=== PATIENT | female | born 1940 | race African-American/Black ===

== ENCOUNTER 2019-11-11 16:16 | Inpatient (IN) | payer MEDICARE, BC ==
[~2019-11-11] VITALS: Ht 170.2 cm; Wt 89.5 kg
[2019-11-11] MEDS: BLOOD SUGAR DIAGNOSTIC STRIP TEST SCH ×2 (02:26→18:18)
[2019-11-11] MEDS: INSULIN LISPRO 100 UNITS/ML SUBCUT SCH ×2 (02:26→18:20)
[~2019-11-11 16:16] MED LIST: FURO-152 PO; METF-414 PO
[2019-11-11 16:44] LABS: EOSINOPHILS % 2.3 % (0.0-5.0); HEMATOCRIT. 36.6 % (36.0-48.0); HEMOGLOBIN. 12.4 g/dL (12.0-16.0); LYMPHOCYTES % 33.8 % (20.0-50.0); MEAN CORPUSCULAR HEMOGLOBIN 29.2 pg (28.0-32.0); MEAN PLATELET VOLUME 8.8 fl (7.4-10.4); MONOCYTES % 10.1 % (2.0-8.0); NEUTROPHILS % 52.8 % (40.0-76.0); PLATELET 183 x1000/uL (130-400); RED BLOOD CELL COUNT 4.26 mill/uL (4.2-5.4); RED CELL DISTRIBUTION WIDTH 14.4 % (11.6-14.6)
[2019-11-11] MEDS: HYDRALAZINE 20MG/ML VIAL IV ONE ×2 (16:45→17:24)
[2019-11-11 16:47] LABS: CHLORIDE 109 mEq/L (98-107)
[2019-11-11 16:50] LABS: PARTIAL THROMBOPLASTIN TIME 23.6 sec (23.4-31.0); PROTHROMBIN TIME 11.3 sec (9.6-11.0)
[2019-11-11 16:51] LABS: ETHANOL BLOOD < 10 mg/dL
[2019-11-11 16:54] LABS: LDL CHOLESTEROL 86 mg/dL (5-100)
[2019-11-11] MEDS ORDERED: IOHEXOL-350 100 ML BOTTLE ONE (17:26)
[2019-11-11] MEDS ORDERED: DIPHENHYDRAMINE 50MG/ML VIAL IV PRN (17:45)
[2019-11-11] MEDS ORDERED: DEXTROSE 50% WATER 50ML SYRINGE IV PRN (17:45)
[2019-11-11] MEDS ORDERED: ONDANSETRON HCL 4MG/2ML INJ IV PRN (17:45)
[2019-11-11] MEDS ORDERED: ACETAMINOPHEN 325MG TABLET PO PRN ×2 (17:45)
[2019-11-11] MEDS ORDERED: MAGNESIUM/ALUMINUM HYDROXIDE/SIMETHICONE 30ML UDC PO PRN (17:45)
[2019-11-11] MEDS ORDERED: ASPIRIN 325MG EC TABLET PO ONE (18:00)
[2019-11-11 20:02] LABS: CLARITY URINE CLEAR (CLEAR); COLOR URINE YELLOW (YELLOW); KETONES URINE NEGATIVE (NEGATIVE); LEUKOCYTE ESTERASE URINE NEGATIVE (NEGATIVE); NITRITE URINE NEGATIVE (NEGATIVE); OCCULT BLOOD URINE NEGATIVE (NEGATIVE); PH URINE 6.5 (4.5-8.0); PROTEIN URINE 2+ (NEGATIVE); SPECIFIC GRAVITY URINE 1.036 (1.005-1.030); UROBILINOGEN URINE 0.2 E.U./dL (0.2-1.0)
[2019-11-11 20:21] LABS: PHOSPHORUS 3.2 mg/dL (2.5-4.9)
[2019-11-11 20:24] LABS: *AMPHETAMINES SCREEN URINE NEGATIVE (NEGATIVE); *BARBITURATES SCREEN URINE NEGATIVE (NEGATIVE); *BENZODIAZEPINES SCREEN URINE NEGATIVE (NEGATIVE); *COCAINE SCREEN URINE NEGATIVE (NEGATIVE)
[2019-11-11 20:25] LABS: CANNABINOID URINE SCREEN NEGATIVE (NEGATIVE); METHADONE URINE SCREEN NEGATIVE (NEGATIVE); OPIATES URINE SCREEN NEGATIVE (NEGATIVE); PHENCYCLIDINE URINE SCREEN NEGATIVE (NEGATIVE)
[2019-11-11] MEDS ORDERED: ZOLPIDEM TARTRATE 5MG TABLET PO PRN (21:00)
[2019-11-11] MEDS ORDERED: HYDRALAZINE 20MG/ML VIAL IV ONE (21:45)
[2019-11-11] MEDS: SODIUM CHLORIDE 0.9% INJ 3ML FLUSH IVF SCH (22:26)
[2019-11-12] VITALS (16 sets, daily range): BP systolic 131–214; BP diastolic 55–108
[2019-11-12] MEDS: ENOXAPARIN 40MG/0.4ML SYR SUBCUT SCH ×2 (02:25→20:29)
[2019-11-12] MEDS: SODIUM CHLORIDE 0.9% INJ 3ML FLUSH IVF SCH ×3 (06:21→20:33)
[2019-11-12] MEDS: BLOOD SUGAR DIAGNOSTIC STRIP TEST SCH ×4 (06:24→20:32)
[2019-11-12] MEDS: INSULIN LISPRO 100 UNITS/ML SUBCUT SCH ×4 (07:20→20:33)
[2019-11-12] MEDS: HYDRALAZINE 20MG/ML VIAL IV PRN ×3 (07:47→18:08)
[2019-11-12] MEDS: ASPIRIN 81MG EC TABLET PO SCH (10:37)
[2019-11-12] MEDS: AMLODIPINE 10MG TABLET PO SCH (10:43)
[2019-11-12] MEDS ORDERED: CARV25TA47 MT (15:15)
[2019-11-12] MEDS ORDERED: AMLO10TA80 MT (15:16)
[2019-11-12] MEDS ORDERED: HYDR25TA MT (15:17)
[2019-11-12] MEDS ORDERED: ISOS1TAB MT (15:18)
[2019-11-12] MEDS ORDERED: ASPI-1497 MT (15:18)
[2019-11-12] MEDS: ATORVASTATIN CALCIUM 20MG TABLET PO SCH (20:29)
[2019-11-13] VITALS (12 sets, daily range): BP systolic 131–195; BP diastolic 42–95
[2019-11-13] MEDS: HYDRALAZINE 20MG/ML VIAL IV PRN ×2 (00:22→22:14)
[2019-11-13] MEDS: SODIUM CHLORIDE 0.9% INJ 3ML FLUSH IVF SCH ×3 (05:34→20:59)
[2019-11-13] MEDS: BLOOD SUGAR DIAGNOSTIC STRIP TEST SCH ×4 (05:34→20:43)
[2019-11-13] MEDS: INSULIN LISPRO 100 UNITS/ML SUBCUT SCH ×4 (07:20→20:43)
[2019-11-13] MEDS: ASPIRIN 81MG EC TABLET PO SCH (08:55)
[2019-11-13] MEDS: AMLODIPINE 10MG TABLET PO SCH (08:57)
[2019-11-13] MEDS: ATORVASTATIN CALCIUM 20MG TABLET PO SCH (20:58)
[2019-11-13] MEDS: ENOXAPARIN 40MG/0.4ML SYR SUBCUT SCH (20:59)
[2019-11-14] VITALS (11 sets, daily range): BP systolic 118–190; BP diastolic 55–135
[2019-11-14] MEDS: SODIUM CHLORIDE 0.9% INJ 3ML FLUSH IVF SCH ×3 (06:15→21:41)
[2019-11-14] MEDS: BLOOD SUGAR DIAGNOSTIC STRIP TEST SCH ×4 (06:21→21:40)
[2019-11-14] MEDS: INSULIN LISPRO 100 UNITS/ML SUBCUT SCH ×4 (06:21→21:00)
[2019-11-14 08:02] LABS: HEMATOCRIT. 34.7 % (36.0-48.0); HEMOGLOBIN. 11.9 g/dL (12.0-16.0); MEAN CORPUSCULAR HEMOGLOBIN 29.3 pg (28.0-32.0); MEAN CORPUSCULAR VOLUME 85.6 fL (81.0-99.0); MEAN PLATELET VOLUME 8.2 fl (7.4-10.4); PLATELET 175 x1000/uL (130-400); RED BLOOD CELL COUNT 4.05 mill/uL (4.2-5.4); RED CELL DISTRIBUTION WIDTH 14.7 % (11.6-14.6)
[2019-11-14 08:18] LABS: CHLORIDE 108 mEq/L (98-107)
[2019-11-14] MEDS: AMLODIPINE 10MG TABLET PO SCH (08:36)
[2019-11-14] MEDS: HYDRALAZINE HCL 10MG TABLET PO SCH ×2 (10:36→21:37)
[2019-11-14 14:45] LABS: PLATELET ESTIMATE NORMAL
[2019-11-14] MEDS: ATORVASTATIN CALCIUM 20MG TABLET PO SCH (21:37)
[2019-11-15] VITALS (12 sets, daily range): BP systolic 124–219; BP diastolic 60–92
[2019-11-15] MEDS: HYDRALAZINE 20MG/ML VIAL IV PRN (03:40)
[2019-11-15] MEDS: BLOOD SUGAR DIAGNOSTIC STRIP TEST SCH ×4 (06:33→21:00)
[2019-11-15] MEDS: SODIUM CHLORIDE 0.9% INJ 3ML FLUSH IVF SCH ×3 (06:33→21:17)
[2019-11-15] MEDS: INSULIN LISPRO 100 UNITS/ML SUBCUT SCH ×4 (06:34→22:57)
[2019-11-15 07:01] LABS: CHLORIDE 109 mEq/L (98-107)
[2019-11-15 07:20] LABS: BASOPHILS % 0.9 % (0.0-2.0); EOSINOPHILS % 3.4 % (0.0-5.0); HEMATOCRIT. 36.3 % (36.0-48.0); HEMOGLOBIN. 12.5 g/dL (12.0-16.0); LYMPHOCYTES % 40.1 % (20.0-50.0); MEAN CORPUSCULAR HEMOGLOBIN 29.1 pg (28.0-32.0); MEAN CORPUSCULAR VOLUME 84.9 fL (81.0-99.0); MEAN PLATELET VOLUME 8.3 fl (7.4-10.4); MONOCYTES % 13.4 % (2.0-8.0); NEUTROPHILS % 42.2 % (40.0-76.0); PLATELET 181 x1000/uL (130-400); RED BLOOD CELL COUNT 4.28 mill/uL (4.2-5.4); RED CELL DISTRIBUTION WIDTH 14.6 % (11.6-14.6)
[2019-11-15] MEDS ORDERED: LIDOCAINE HCL 1% 20ML VIAL (Pyxis) INJ ONE ×2 (07:39→07:53)
[2019-11-15] MEDS ORDERED: CEFAZOLIN 1000MG PREMIX 100 ML IV ONE (07:39)
[2019-11-15] MEDS ORDERED: IOHEXOL-300 100 ML BOTTLE ONE (07:40)
[2019-11-15] MEDS ORDERED: PROPOFOL 200MG/20ML VIAL IV ONE (08:11)
[2019-11-15] MEDS ORDERED: MIDAZOLAM HCL 2 MG/2 ML VIAL ONE (08:11)
[2019-11-15] MEDS ORDERED: FENTANYL CITRATE/PF 50MCG/ML 2ML VIAL ONE (08:11)
[2019-11-15] MEDS ORDERED: ONDANSETRON HCL 4MG/2ML INJ ONE (09:18)
[2019-11-15] MEDS ORDERED: DEXAMETHASONE 4MG/ML 1ML VIAL ONE (09:18)
[2019-11-15] MEDS ORDERED: GENTAMICIN SULF 40MG/ML 2ML VIAL ONE (09:26)
[2019-11-15] MEDS ORDERED: HYDROMORPHONE HCL/PF 2MG/ML CPJ IV PRN (09:30)
[2019-11-15] MEDS ORDERED: LABETALOL 5MG/ML SYR 20 MG/4 ML SYRINGE IV PRN (09:30)
[2019-11-15] MEDS ORDERED: ONDANSETRON HCL 4MG/2ML INJ IV PRN (09:30)
[2019-11-15] MEDS ORDERED: MEPERIDINE HCL/PF 25MG/ML CPJ IV PRN (09:30)
[2019-11-15] MEDS ORDERED: HYDROCODONE/ACETAMINOPHEN 5/325MG TABLET PO PRN (09:45)
[2019-11-15] MEDS: HYDRALAZINE HCL 10MG TABLET PO SCH ×2 (10:34→21:18)
[2019-11-15] MEDS: AMLODIPINE 10MG TABLET PO SCH (10:34)
[2019-11-15] MEDS: ASPIRIN 81MG EC TABLET PO SCH (10:35)
[2019-11-15] MEDS: CEFAZOLIN 1000MG PREMIX 50 ML IV SCH (17:28)
[2019-11-15] MEDS: MAGNESIUM HYDROXIDE 400MG/5ML 30ML UDC PO PRN (18:20)
[2019-11-15] MEDS: ATORVASTATIN CALCIUM 20MG TABLET PO SCH (21:18)
[2019-11-16] VITALS (12 sets, daily range): BP systolic 124–159; BP diastolic 74–92
[2019-11-16] MEDS: CEFAZOLIN 1000MG PREMIX 50 ML IV SCH (00:18)
[2019-11-16] MEDS: SODIUM CHLORIDE 0.9% INJ 3ML FLUSH IVF SCH ×3 (06:22→21:04)
[2019-11-16] MEDS: BLOOD SUGAR DIAGNOSTIC STRIP TEST SCH ×4 (06:22→21:00)
[2019-11-16 06:55] LABS: BASOPHILS % 0.3 % (0.0-2.0); EOSINOPHILS % 0.1 % (0.0-5.0); HEMATOCRIT. 38.7 % (36.0-48.0); HEMOGLOBIN. 13.2 g/dL (12.0-16.0); LYMPHOCYTES % 15.3 % (20.0-50.0); MEAN CORPUSCULAR HEMOGLOBIN 29.1 pg (28.0-32.0); MEAN CORPUSCULAR VOLUME 85.4 fL (81.0-99.0); MEAN PLATELET VOLUME 8.5 fl (7.4-10.4); NEUTROPHILS % 75.3 % (40.0-76.0); PLATELET 194 x1000/uL (130-400); RED BLOOD CELL COUNT 4.53 mill/uL (4.2-5.4); RED CELL DISTRIBUTION WIDTH 14.6 % (11.6-14.6)
[2019-11-16 07:02] LABS: CHLORIDE 106 mEq/L (98-107)
[2019-11-16] MEDS: INSULIN LISPRO 100 UNITS/ML SUBCUT SCH ×4 (07:03→21:05)
[2019-11-16] MEDS: AMLODIPINE 10MG TABLET PO SCH (08:25)
[2019-11-16] MEDS: ASPIRIN 81MG EC TABLET PO SCH (08:25)
[2019-11-16] MEDS: DOCUSATE SODIUM 250MG CAPSULE PO SCH ×2 (08:25→17:34)
[2019-11-16] MEDS: HYDRALAZINE HCL 10MG TABLET PO SCH ×2 (08:25→21:04)
[2019-11-16] MEDS: MAGNESIUM HYDROXIDE 400MG/5ML 30ML UDC PO PRN (17:34)
[2019-11-16] MEDS: ATORVASTATIN CALCIUM 20MG TABLET PO SCH (21:03)
== END 2019-11-16 23:25 | DRG 242 ==
LOC: ER 16:16 → EDBEDREQ 18:07 → EDBEDREQTM 18:07 → 3WST 18:09 → EDBEDREQTM 18:11 → EDBEDREQ 18:11 → EDBEDREQSVC 18:11 → ENRESERV 20:41
PROVIDERS: ADMIT Internal Medicine; ATTEND Internal Medicine
PROC: B5171ZZ Fluoroscopy of Left Subclavian Vein using Low Osmolar Contrast (ICD-10-PCS; principal; 2019-11-15)
PROC: 02H63JZ Insertion of Pacemaker Lead into Right Atrium, Percutaneous Approach (ICD-10-PCS; 2019-11-15)
PROC: 0JH606Z Insertion of Pacemaker, Dual Chamber into Chest Subcutaneous Tissue and Fascia, Open Approach (ICD-10-PCS; 2019-11-15)
PROC: 02HK3JZ Insertion of Pacemaker Lead into Right Ventricle, Percutaneous Approach (ICD-10-PCS; 2019-11-15)
DX: I49.5 Sick sinus syndrome (principal); I63.81 Other cerebral infarction due to occlusion or stenosis of small artery; I48.92 Unspecified atrial flutter; G81.91 Hemiplegia, unspecified affecting right dominant side; I11.9 Hypertensive heart disease without heart failure; E78.5 Hyperlipidemia, unspecified; E11.9 Type 2 diabetes mellitus without complications; I44.1 Atrioventricular block, second degree; I48.0 Paroxysmal atrial fibrillation; M19.90 Unspecified osteoarthritis, unspecified site; Z96.653 Presence of artificial knee joint, bilateral; R29.810 Facial weakness; I34.0 Nonrheumatic mitral (valve) insufficiency; Z95.0 Presence of cardiac pacemaker; Z79.84 Long term (current) use of oral hypoglycemic drugs; Z79.899 Other long term (current) drug therapy; Z83.3 Family history of diabetes mellitus; Z82.49 Family history of ischemic heart disease and other diseases of the circulatory system; Z90.710 Acquired absence of both cervix and uterus; Z90.49 Acquired absence of other specified parts of digestive tract
CPT/HCPCS: 33208; 36415; 70496; 70498; 70551; 71045; 75820; 80048; 80053; 80061; 80305; 80320; 81003; 82962; 83036; 83721; 83735; 84100; 84443; 84484; 85025; 86850; 86900; 92523; 92610; 93005; 93306; 93970; 96374; 97116; 97162; 97164; 97166; 97535; 99291; C1785; C1893; C1898; J0360; J0690; J1100; J1200; J1580; J1650; J1815; J2250; J2405; J2704; J3010; J3490; Q9967; G0480

== ENCOUNTER 2019-11-16 22:00 | Inpatient (IN) | payer MEDICARE, BC ==
[~2019-11-16] VITALS: Ht 170.2 cm; Wt 89.5 kg
[2019-11-16 22:00] VITALS: BP 176/82
[~2019-11-16 22:00] MED LIST changes: +AMLO10TA80 MT; +ASPI-1497 MT; +CARV25TA47 MT; -FURO-152 PO; +HYDR25TA MT; +ISOS1TAB MT
[2019-11-16 22:10] VITALS: BP 176/80
[2019-11-16 22:30] VITALS: BP 176/82
[2019-11-16] MEDS ORDERED: ONDANSETRON HCL 4MG TABLET PO PRN (22:45)
[2019-11-16] MEDS ORDERED: ZOLPIDEM TARTRATE 5MG TABLET PO PRN (22:45)
[2019-11-16] MEDS ORDERED: MAGNESIUM/ALUMINUM HYDROXIDE/SIMETHICONE 30ML UDC PO PRN (22:45)
[2019-11-16] MEDS ORDERED: ACETAMINOPHEN 325MG TABLET PO PRN ×2 (22:45)
[2019-11-16] MEDS ORDERED: DIPHENHYDRAMINE 25MG CAPSULE PO PRN (22:45)
[2019-11-16] MEDS ORDERED: DEXTROSE 50% WATER 50ML SYRINGE IV PRN (23:00)
[2019-11-16] MEDS ORDERED: HYDROCODONE/ACETAMINOPHEN 5/325MG TABLET PO PRN (23:02)
[2019-11-17] MEDS: SODIUM CHLORIDE 0.9% INJ 3ML FLUSH IVF SCH ×3 (06:00→22:51)
[2019-11-17] MEDS: BLOOD SUGAR DIAGNOSTIC STRIP TEST SCH ×4 (06:30→20:41)
[2019-11-17 08:26] VITALS: BP 140/70
[2019-11-17] MEDS ORDERED: DOCUSATE SODIUM 250MG CAPSULE PO SCH (09:00)
[2019-11-17] MEDS: INSULIN LISPRO 100 UNITS/ML SUBCUT SCH ×4 (09:00→20:41)
[2019-11-17] MEDS: ASPIRIN 81MG EC TABLET PO SCH (09:15)
[2019-11-17] MEDS: AMLODIPINE 10MG TABLET PO SCH (09:16)
[2019-11-17] MEDS: HYDRALAZINE HCL 10MG TABLET PO SCH ×2 (09:16→20:41)
[2019-11-17] MEDS ORDERED: LACTULOSE 20G/30ML UDC PO PRN (11:15)
[2019-11-17] MEDS: APIXABAN 5 MG TABLET PO SCH ×2 (12:28→20:40)
[2019-11-17] MEDS ORDERED: NA PHOS,M-B/NA PHOS,DI-BA ENEMA 118ML PR NR (15:00)
[2019-11-17] MEDS: DOCUSATE SODIUM 100MG CAPSULE PO SCH (17:10)
[2019-11-17] MEDS: LACTULOSE 20G/30ML UDC PO SCH ×2 (17:10→22:00)
[2019-11-17 20:00] VITALS: BP 189/70
[2019-11-17] MEDS: CLONIDINE 0.1MG TABLET PO PRN (20:40)
[2019-11-17] MEDS: ATORVASTATIN CALCIUM 20MG TABLET PO SCH (20:41)
[2019-11-17 22:51] VITALS: BP 160/73
[2019-11-18] MEDS: BLOOD SUGAR DIAGNOSTIC STRIP TEST SCH ×4 (05:47→20:10)
[2019-11-18] MEDS: SODIUM CHLORIDE 0.9% INJ 3ML FLUSH IVF SCH ×2 (05:47→14:00)
[2019-11-18] MEDS: INSULIN LISPRO 100 UNITS/ML SUBCUT SCH ×4 (05:48→20:10)
[2019-11-18] MEDS: LACTULOSE 20G/30ML UDC PO SCH ×2 (05:48→14:00)
[2019-11-18 07:31] LABS: BASOPHILS % 0.6 % (0.0-2.0); HEMATOCRIT. 36.5 % (36.0-48.0); HEMOGLOBIN. 12.4 g/dL (12.0-16.0); LYMPHOCYTES % 30.1 % (20.0-50.0); MEAN CORPUSCULAR HEMOGLOBIN 29.4 pg (28.0-32.0); MEAN CORPUSCULAR VOLUME 86.3 fL (81.0-99.0); MEAN PLATELET VOLUME 8.3 fl (7.4-10.4); MONOCYTES % 12.4 % (2.0-8.0); NEUTROPHILS % 54.9 % (40.0-76.0); PLATELET 171 x1000/uL (130-400); RED BLOOD CELL COUNT 4.23 mill/uL (4.2-5.4); RED CELL DISTRIBUTION WIDTH 14.4 % (11.6-14.6)
[2019-11-18 07:42] LABS: CHLORIDE 110 mEq/L (98-107)
[2019-11-18 08:30] VITALS: BP 145/77
[2019-11-18] MEDS: LOSARTAN POTASSIUM 25 MG TABLET PO SCH (08:46)
[2019-11-18] MEDS: HYDRALAZINE HCL 10MG TABLET PO SCH ×2 (08:46→20:10)
[2019-11-18] MEDS: DOCUSATE SODIUM 100MG CAPSULE PO SCH ×2 (08:46→16:53)
[2019-11-18] MEDS: APIXABAN 5 MG TABLET PO SCH ×2 (08:46→16:52)
[2019-11-18] MEDS: AMLODIPINE 10MG TABLET PO SCH (08:46)
[2019-11-18] MEDS: ASPIRIN 81MG EC TABLET PO SCH (08:46)
[2019-11-18] MEDS ORDERED: NA PHOS,M-B/NA PHOS,DI-BA ENEMA 118ML PR PRN (09:00)
[2019-11-18 20:00] VITALS: BP 172/76
[2019-11-18 20:10] VITALS: BP 147/65
[2019-11-18] MEDS: ATORVASTATIN CALCIUM 20MG TABLET PO SCH (20:10)
[2019-11-19] MEDS: SODIUM CHLORIDE 0.9% INJ 3ML FLUSH IVF SCH ×4 (00:12→21:19)
[2019-11-19] MEDS: INSULIN LISPRO 100 UNITS/ML SUBCUT SCH ×4 (06:03→21:00)
[2019-11-19] MEDS: BLOOD SUGAR DIAGNOSTIC STRIP TEST SCH ×4 (06:03→21:19)
[2019-11-19 07:10] LABS: BASOPHILS % 0.8 % (0.0-2.0); EOSINOPHILS % 2.6 % (0.0-5.0); HEMATOCRIT. 33.1 % (36.0-48.0); HEMOGLOBIN. 11.3 g/dL (12.0-16.0); LYMPHOCYTES % 39.7 % (20.0-50.0); MEAN CORPUSCULAR HEMOGLOBIN 29.2 pg (28.0-32.0); MEAN CORPUSCULAR VOLUME 85.3 fL (81.0-99.0); MEAN PLATELET VOLUME 8.4 fl (7.4-10.4); MONOCYTES % 11.4 % (2.0-8.0); NEUTROPHILS % 45.5 % (40.0-76.0); PLATELET 176 x1000/uL (130-400); RED BLOOD CELL COUNT 3.89 mill/uL (4.2-5.4); RED CELL DISTRIBUTION WIDTH 14.8 % (11.6-14.6)
[2019-11-19 07:16] LABS: CHLORIDE 110 mEq/L (98-107)
[2019-11-19 07:45] VITALS: BP 131/78
[2019-11-19] MEDS: APIXABAN 5 MG TABLET PO SCH ×2 (08:28→17:29)
[2019-11-19] MEDS: ASPIRIN 81MG EC TABLET PO SCH (08:28)
[2019-11-19] MEDS: HYDRALAZINE HCL 10MG TABLET PO SCH ×2 (08:28→21:19)
[2019-11-19] MEDS: LOSARTAN POTASSIUM 25 MG TABLET PO SCH (08:28)
[2019-11-19] MEDS: DOCUSATE SODIUM 100MG CAPSULE PO SCH ×2 (08:28→17:30)
[2019-11-19] MEDS: AMLODIPINE 10MG TABLET PO SCH (08:28)
[2019-11-19 20:00] VITALS: BP 156/67
[2019-11-19] MEDS: ATORVASTATIN CALCIUM 20MG TABLET PO SCH (21:15)
[2019-11-19 21:19] VITALS: BP 170/70
[2019-11-19] MEDS: CLONIDINE 0.1MG TABLET PO PRN (21:19)
[2019-11-20 00:28] VITALS: BP 149/69
[2019-11-20] MEDS: INSULIN LISPRO 100 UNITS/ML SUBCUT SCH ×4 (05:38→21:00)
[2019-11-20] MEDS: SODIUM CHLORIDE 0.9% INJ 3ML FLUSH IVF SCH ×3 (05:38→22:03)
[2019-11-20] MEDS: BLOOD SUGAR DIAGNOSTIC STRIP TEST SCH ×4 (05:38→21:00)
[2019-11-20 08:07] VITALS: BP 138/69
[2019-11-20] MEDS: DOCUSATE SODIUM 100MG CAPSULE PO SCH ×2 (08:31→17:02)
[2019-11-20] MEDS: LOSARTAN POTASSIUM 25 MG TABLET PO SCH (08:32)
[2019-11-20] MEDS: ASPIRIN 81MG EC TABLET PO SCH (08:32)
[2019-11-20] MEDS: AMLODIPINE 10MG TABLET PO SCH (08:32)
[2019-11-20] MEDS: APIXABAN 5 MG TABLET PO SCH ×2 (08:32→17:02)
[2019-11-20] MEDS: HYDRALAZINE HCL 10MG TABLET PO SCH ×2 (08:32→21:00)
[2019-11-20] MEDS: CLONIDINE 0.1MG TABLET PO PRN (17:34)
[2019-11-20 20:00] VITALS: BP 113/68
[2019-11-20] MEDS: ATORVASTATIN CALCIUM 20MG TABLET PO SCH (22:25)
[2019-11-21] MEDS: SODIUM CHLORIDE 0.9% INJ 3ML FLUSH IVF SCH ×3 (05:18→21:56)
[2019-11-21] MEDS: BLOOD SUGAR DIAGNOSTIC STRIP TEST SCH ×4 (06:45→21:06)
[2019-11-21] MEDS: INSULIN LISPRO 100 UNITS/ML SUBCUT SCH ×4 (06:45→21:00)
[2019-11-21 08:00] VITALS: BP 154/78
[2019-11-21] MEDS: LOSARTAN POTASSIUM 25 MG TABLET PO SCH (09:39)
[2019-11-21] MEDS: AMLODIPINE 10MG TABLET PO SCH (09:40)
[2019-11-21] MEDS: DOCUSATE SODIUM 100MG CAPSULE PO SCH ×2 (09:41→17:19)
[2019-11-21] MEDS: APIXABAN 5 MG TABLET PO SCH ×2 (09:41→17:19)
[2019-11-21] MEDS: ASPIRIN 81MG EC TABLET PO SCH (09:41)
[2019-11-21] MEDS: HYDRALAZINE HCL 10MG TABLET PO SCH ×2 (09:42→21:06)
[2019-11-21] MEDS: FUROSEMIDE 40MG TABLET PO SCH (09:46)
[2019-11-21 20:00] VITALS: BP 159/75
[2019-11-21] MEDS: ATORVASTATIN CALCIUM 20MG TABLET PO SCH (21:05)
[2019-11-22] MEDS: SODIUM CHLORIDE 0.9% INJ 3ML FLUSH IVF SCH ×3 (06:38→21:19)
[2019-11-22] MEDS: BLOOD SUGAR DIAGNOSTIC STRIP TEST SCH ×4 (06:38→20:52)
[2019-11-22 07:08] LABS: BASOPHILS % 0.8 % (0.0-2.0); EOSINOPHILS % 3.8 % (0.0-5.0); HEMATOCRIT. 32.7 % (36.0-48.0); HEMOGLOBIN. 11.2 g/dL (12.0-16.0); LYMPHOCYTES % 41.8 % (20.0-50.0); MEAN CORPUSCULAR HEMOGLOBIN 29.1 pg (28.0-32.0); MEAN CORPUSCULAR VOLUME 85.3 fL (81.0-99.0); MONOCYTES % 14.6 % (2.0-8.0); PLATELET 200 x1000/uL (130-400); RED BLOOD CELL COUNT 3.84 mill/uL (4.2-5.4); RED CELL DISTRIBUTION WIDTH 14.3 % (11.6-14.6)
[2019-11-22 07:11] LABS: CHLORIDE 110 mEq/L (98-107)
[2019-11-22 08:00] VITALS: BP 151/68
[2019-11-22] MEDS: INSULIN LISPRO 100 UNITS/ML SUBCUT SCH ×4 (09:00→20:57)
[2019-11-22] MEDS: ASPIRIN 81MG EC TABLET PO SCH (09:34)
[2019-11-22] MEDS: APIXABAN 5 MG TABLET PO SCH ×2 (09:35→17:00)
[2019-11-22] MEDS: FUROSEMIDE 40MG TABLET PO SCH (09:35)
[2019-11-22] MEDS: AMLODIPINE 10MG TABLET PO SCH (09:35)
[2019-11-22] MEDS: LOSARTAN POTASSIUM 25 MG TABLET PO SCH ×2 (09:36→20:52)
[2019-11-22] MEDS: DOCUSATE SODIUM 100MG CAPSULE PO SCH ×2 (09:36→17:11)
[2019-11-22] MEDS: HYDRALAZINE HCL 10MG TABLET PO SCH ×2 (09:40→20:52)
[2019-11-22 20:00] VITALS: BP 132/75
[2019-11-22] MEDS: ATORVASTATIN CALCIUM 20MG TABLET PO SCH (20:52)
[2019-11-23] MEDS: SODIUM CHLORIDE 0.9% INJ 3ML FLUSH IVF SCH ×3 (05:57→22:00)
[2019-11-23] MEDS: BLOOD SUGAR DIAGNOSTIC STRIP TEST SCH ×4 (05:58→21:00)
[2019-11-23] MEDS: INSULIN LISPRO 100 UNITS/ML SUBCUT SCH ×4 (06:01→21:00)
[2019-11-23 08:00] VITALS: BP 145/67
[2019-11-23] MEDS: ASPIRIN 81MG EC TABLET PO SCH (08:27)
[2019-11-23] MEDS: AMLODIPINE 10MG TABLET PO SCH (08:27)
[2019-11-23] MEDS: FUROSEMIDE 40MG TABLET PO SCH (08:28)
[2019-11-23] MEDS: HYDRALAZINE HCL 10MG TABLET PO SCH ×2 (08:28→21:22)
[2019-11-23] MEDS: LOSARTAN POTASSIUM 25 MG TABLET PO SCH (08:28)
[2019-11-23] MEDS: DOCUSATE SODIUM 100MG CAPSULE PO SCH ×2 (08:28→16:47)
[2019-11-23 08:56] LABS: BASOPHILS % 0.8 % (0.0-2.0); EOSINOPHILS % 3.2 % (0.0-5.0); HEMATOCRIT. 34.5 % (36.0-48.0); HEMOGLOBIN. 11.8 g/dL (12.0-16.0); LYMPHOCYTES % 42.4 % (20.0-50.0); MEAN CORPUSCULAR HEMOGLOBIN 29.3 pg (28.0-32.0); MEAN CORPUSCULAR VOLUME 85.7 fL (81.0-99.0); MEAN PLATELET VOLUME 7.7 fl (7.4-10.4); MONOCYTES % 12.2 % (2.0-8.0); NEUTROPHILS % 41.4 % (40.0-76.0); PLATELET 211 x1000/uL (130-400); RED BLOOD CELL COUNT 4.03 mill/uL (4.2-5.4); RED CELL DISTRIBUTION WIDTH 14.3 % (11.6-14.6)
[2019-11-23 08:57] LABS: CHLORIDE 109 mEq/L (98-107)
[2019-11-23] MEDS: APIXABAN 5 MG TABLET PO SCH ×2 (14:17→16:47)
[2019-11-23] MEDS: BISACODYL 5MG TABLET PO PRN (16:47)
[2019-11-23 20:00] VITALS: BP 152/80
[2019-11-23] MEDS: LACTULOSE 20G/30ML UDC PO PRN (21:21)
[2019-11-23] MEDS: ATORVASTATIN CALCIUM 20MG TABLET PO SCH (21:22)
[2019-11-23] MEDS: LOSARTAN POTASSIUM 50 MG TABLET PO SCH (21:23)
[2019-11-24 05:49] LABS: HEMATOCRIT. 32.5 % (36.0-48.0); HEMOGLOBIN. 11.2 g/dL (12.0-16.0); MEAN CORPUSCULAR HEMOGLOBIN 29.4 pg (28.0-32.0); PLATELET 206 x1000/uL (130-400); RED BLOOD CELL COUNT 3.82 mill/uL (4.2-5.4); RED CELL DISTRIBUTION WIDTH 14.4 % (11.6-14.6)
[2019-11-24 06:15] LABS: CHLORIDE 108 mEq/L (98-107)
[2019-11-24] MEDS: SODIUM CHLORIDE 0.9% INJ 3ML FLUSH IVF SCH ×3 (06:34→23:15)
[2019-11-24] MEDS: BLOOD SUGAR DIAGNOSTIC STRIP TEST SCH ×4 (06:35→21:08)
[2019-11-24 08:04] VITALS: BP 150/86
[2019-11-24] MEDS: INSULIN LISPRO 100 UNITS/ML SUBCUT SCH ×4 (09:00→21:00)
[2019-11-24] MEDS: FUROSEMIDE 40MG TABLET PO SCH (09:10)
[2019-11-24] MEDS: APIXABAN 5 MG TABLET PO SCH ×2 (09:11→16:09)
[2019-11-24] MEDS: DOCUSATE SODIUM 100MG CAPSULE PO SCH ×2 (09:11→16:13)
[2019-11-24] MEDS: HYDRALAZINE HCL 10MG TABLET PO SCH ×3 (09:11→21:09)
[2019-11-24] MEDS: ASPIRIN 81MG EC TABLET PO SCH (09:11)
[2019-11-24] MEDS: AMLODIPINE 10MG TABLET PO SCH (09:11)
[2019-11-24] MEDS: LOSARTAN POTASSIUM 50 MG TABLET PO SCH ×2 (09:13→21:09)
[2019-11-24 10:57] LABS: PLATELET ESTIMATE NORMAL
[2019-11-24 20:00] VITALS: BP 178/64
[2019-11-24] MEDS: ATORVASTATIN CALCIUM 20MG TABLET PO SCH (21:08)
[2019-11-24 22:46] VITALS: BP 146/69
[2019-11-25] MEDS: SODIUM CHLORIDE 0.9% INJ 3ML FLUSH IVF SCH ×3 (05:32→21:00)
[2019-11-25] MEDS: HYDRALAZINE HCL 10MG TABLET PO SCH ×3 (05:32→21:00)
[2019-11-25] MEDS: MAGNESIUM HYDROXIDE 400MG/5ML 30ML UDC PO PRN (05:32)
[2019-11-25] MEDS: INSULIN LISPRO 100 UNITS/ML SUBCUT SCH ×4 (05:33→20:58)
[2019-11-25] MEDS: BLOOD SUGAR DIAGNOSTIC STRIP TEST SCH ×4 (05:33→20:58)
[2019-11-25] MEDS: BISACODYL 5MG TABLET PO PRN (07:02)
[2019-11-25 07:54] VITALS: BP 145/76
[2019-11-25 08:11] LABS: BASOPHILS % 0.8 % (0.0-2.0); EOSINOPHILS % 2.8 % (0.0-5.0); HEMOGLOBIN. 11.4 g/dL (12.0-16.0); LYMPHOCYTES % 41.6 % (20.0-50.0); MEAN CORPUSCULAR HEMOGLOBIN 29.4 pg (28.0-32.0); MEAN CORPUSCULAR VOLUME 85.2 fL (81.0-99.0); MEAN PLATELET VOLUME 8.1 fl (7.4-10.4); MONOCYTES % 14.1 % (2.0-8.0); NEUTROPHILS % 40.7 % (40.0-76.0); PLATELET 205 x1000/uL (130-400); RED BLOOD CELL COUNT 3.88 mill/uL (4.2-5.4); RED CELL DISTRIBUTION WIDTH 14.4 % (11.6-14.6)
[2019-11-25] MEDS: AMLODIPINE 10MG TABLET PO SCH (08:24)
[2019-11-25] MEDS: APIXABAN 5 MG TABLET PO SCH ×2 (08:24→16:43)
[2019-11-25] MEDS: LOSARTAN POTASSIUM 50 MG TABLET PO SCH ×2 (08:24→20:58)
[2019-11-25] MEDS: ASPIRIN 81MG EC TABLET PO SCH (08:24)
[2019-11-25] MEDS: DOCUSATE SODIUM 100MG CAPSULE PO SCH ×2 (08:24→16:24)
[2019-11-25] MEDS: FUROSEMIDE 40MG TABLET PO SCH (08:24)
[2019-11-25 08:31] LABS: CHLORIDE 107 mEq/L (98-107)
[2019-11-25 20:00] VITALS: BP 148/68
[2019-11-25] MEDS: ATORVASTATIN CALCIUM 20MG TABLET PO SCH (20:58)
[2019-11-26] MEDS: SODIUM CHLORIDE 0.9% INJ 3ML FLUSH IVF SCH ×3 (05:40→22:15)
[2019-11-26] MEDS: BLOOD SUGAR DIAGNOSTIC STRIP TEST SCH ×4 (05:41→21:00)
[2019-11-26] MEDS: HYDRALAZINE HCL 10MG TABLET PO SCH ×3 (05:41→22:15)
[2019-11-26] MEDS: INSULIN LISPRO 100 UNITS/ML SUBCUT SCH ×4 (05:41→21:00)
[2019-11-26 07:10] LABS: BASOPHILS % 0.8 % (0.0-2.0); EOSINOPHILS % 2.6 % (0.0-5.0); HEMATOCRIT. 33.7 % (36.0-48.0); HEMOGLOBIN. 11.5 g/dL (12.0-16.0); LYMPHOCYTES % 45.8 % (20.0-50.0); MEAN CORPUSCULAR HEMOGLOBIN 29.6 pg (28.0-32.0); MEAN CORPUSCULAR VOLUME 86.7 fL (81.0-99.0); MEAN PLATELET VOLUME 7.7 fl (7.4-10.4); NEUTROPHILS % 36.8 % (40.0-76.0); PLATELET 213 x1000/uL (130-400); RED BLOOD CELL COUNT 3.89 mill/uL (4.2-5.4); RED CELL DISTRIBUTION WIDTH 14.3 % (11.6-14.6)
[2019-11-26 07:35] LABS: CHLORIDE 107 mEq/L (98-107)
[2019-11-26 08:00] VITALS: BP 139/72
[2019-11-26 08:16] VITALS: BP 139/72
[2019-11-26] MEDS: DOCUSATE SODIUM 100MG CAPSULE PO SCH ×2 (09:00→16:37)
[2019-11-26] MEDS: LOSARTAN POTASSIUM 50 MG TABLET PO SCH ×2 (09:48→22:15)
[2019-11-26] MEDS: FUROSEMIDE 40MG TABLET PO SCH (09:48)
[2019-11-26] MEDS: ASPIRIN 81MG EC TABLET PO SCH (09:48)
[2019-11-26] MEDS: AMLODIPINE 10MG TABLET PO SCH (09:48)
[2019-11-26] MEDS: APIXABAN 5 MG TABLET PO SCH ×2 (09:49→16:39)
[2019-11-26 22:14] VITALS: BP 132/65
[2019-11-26] MEDS: ATORVASTATIN CALCIUM 20MG TABLET PO SCH (22:15)
[2019-11-27] MEDS: SODIUM CHLORIDE 0.9% INJ 3ML FLUSH IVF SCH ×3 (06:00→14:14)
[2019-11-27] MEDS: HYDRALAZINE HCL 10MG TABLET PO SCH ×3 (06:15→22:13)
[2019-11-27] MEDS: BLOOD SUGAR DIAGNOSTIC STRIP TEST SCH ×4 (06:15→21:00)
[2019-11-27 06:45] LABS: BASOPHILS % 0.7 % (0.0-2.0); CHLORIDE 109 mEq/L (98-107); EOSINOPHILS % 3.2 % (0.0-5.0); HEMATOCRIT. 33.3 % (36.0-48.0); HEMOGLOBIN. 11.4 g/dL (12.0-16.0); LYMPHOCYTES % 44.2 % (20.0-50.0); MEAN CORPUSCULAR HEMOGLOBIN 29.2 pg (28.0-32.0); MEAN CORPUSCULAR VOLUME 85.5 fL (81.0-99.0); MEAN PLATELET VOLUME 7.9 fl (7.4-10.4); MONOCYTES % 14.2 % (2.0-8.0); NEUTROPHILS % 37.7 % (40.0-76.0); PLATELET 205 x1000/uL (130-400); RED CELL DISTRIBUTION WIDTH 14.4 % (11.6-14.6)
[2019-11-27 08:00] VITALS: BP 140/73
[2019-11-27] MEDS: LOSARTAN POTASSIUM 50 MG TABLET PO SCH ×2 (08:49→22:12)
[2019-11-27] MEDS: APIXABAN 5 MG TABLET PO SCH ×2 (08:49→16:20)
[2019-11-27] MEDS: AMLODIPINE 10MG TABLET PO SCH (08:49)
[2019-11-27] MEDS: FUROSEMIDE 40MG TABLET PO SCH (08:49)
[2019-11-27] MEDS: DOCUSATE SODIUM 100MG CAPSULE PO SCH ×2 (08:49→16:19)
[2019-11-27] MEDS: ASPIRIN 81MG EC TABLET PO SCH (08:49)
[2019-11-27] MEDS: INSULIN LISPRO 100 UNITS/ML SUBCUT SCH ×4 (08:50→21:00)
[2019-11-27 14:00] VITALS: BP 137/68
[2019-11-27] MEDS: BISACODYL 5MG TABLET PO PRN (17:52)
[2019-11-27 20:00] VITALS: BP 138/70
[2019-11-27] MEDS: ATORVASTATIN CALCIUM 20MG TABLET PO SCH (22:12)
[2019-11-28] MEDS: HYDRALAZINE HCL 10MG TABLET PO SCH ×3 (05:44→23:31)
[2019-11-28] MEDS: BLOOD SUGAR DIAGNOSTIC STRIP TEST SCH ×4 (05:46→20:28)
[2019-11-28 07:00] VITALS: BP 147/82
[2019-11-28 07:34] LABS: EOSINOPHILS % 2.7 % (0.0-5.0); HEMOGLOBIN. 11.7 g/dL (12.0-16.0); LYMPHOCYTES % 41.5 % (20.0-50.0); MEAN CORPUSCULAR HEMOGLOBIN 29.4 pg (28.0-32.0); MEAN CORPUSCULAR VOLUME 85.3 fL (81.0-99.0); MEAN PLATELET VOLUME 7.7 fl (7.4-10.4); MONOCYTES % 12.8 % (2.0-8.0); PLATELET 212 x1000/uL (130-400); RED BLOOD CELL COUNT 3.99 mill/uL (4.2-5.4); RED CELL DISTRIBUTION WIDTH 14.6 % (11.6-14.6)
[2019-11-28 07:57] LABS: CHLORIDE 108 mEq/L (98-107)
[2019-11-28] MEDS: FUROSEMIDE 40MG TABLET PO SCH (08:36)
[2019-11-28] MEDS: DOCUSATE SODIUM 100MG CAPSULE PO SCH ×2 (08:36→17:22)
[2019-11-28] MEDS: LOSARTAN POTASSIUM 50 MG TABLET PO SCH ×2 (08:37→20:25)
[2019-11-28] MEDS: ASPIRIN 81MG EC TABLET PO SCH (08:37)
[2019-11-28] MEDS: AMLODIPINE 10MG TABLET PO SCH (08:37)
[2019-11-28] MEDS: INSULIN LISPRO 100 UNITS/ML SUBCUT SCH ×4 (09:00→20:30)
[2019-11-28] MEDS: APIXABAN 5 MG TABLET PO SCH ×2 (11:28→17:22)
[2019-11-28 13:00] VITALS: BP 124/64
[2019-11-28 20:00] VITALS: BP 138/72
[2019-11-28] MEDS: ATORVASTATIN CALCIUM 20MG TABLET PO SCH (20:25)
[2019-11-29] MEDS: MAGNESIUM HYDROXIDE 400MG/5ML 30ML UDC PO PRN (06:23)
[2019-11-29] MEDS: BLOOD SUGAR DIAGNOSTIC STRIP TEST SCH ×4 (06:23→21:18)
[2019-11-29] MEDS: HYDRALAZINE HCL 10MG TABLET PO SCH ×3 (06:23→21:18)
[2019-11-29 06:43] LABS: BASOPHILS % 0.7 % (0.0-2.0); EOSINOPHILS % 2.3 % (0.0-5.0); HEMATOCRIT. 33.3 % (36.0-48.0); HEMOGLOBIN. 11.5 g/dL (12.0-16.0); LYMPHOCYTES % 41.5 % (20.0-50.0); MEAN CORPUSCULAR HEMOGLOBIN 29.4 pg (28.0-32.0); MEAN CORPUSCULAR VOLUME 85.2 fL (81.0-99.0); MEAN PLATELET VOLUME 7.8 fl (7.4-10.4); MONOCYTES % 12.5 % (2.0-8.0); PLATELET 194 x1000/uL (130-400); RED BLOOD CELL COUNT 3.91 mill/uL (4.2-5.4); RED CELL DISTRIBUTION WIDTH 14.3 % (11.6-14.6)
[2019-11-29 07:39] LABS: CHLORIDE 106 mEq/L (98-107)
[2019-11-29] MEDS: INSULIN LISPRO 100 UNITS/ML SUBCUT SCH ×4 (09:00→21:00)
[2019-11-29] MEDS: APIXABAN 5 MG TABLET PO SCH ×2 (10:21→18:10)
[2019-11-29] MEDS: FUROSEMIDE 20MG TABLET PO SCH (10:22)
[2019-11-29] MEDS: DOCUSATE SODIUM 100MG CAPSULE PO SCH ×2 (10:22→18:10)
[2019-11-29] MEDS: ASPIRIN 81MG EC TABLET PO SCH (10:22)
[2019-11-29] MEDS: LOSARTAN POTASSIUM 50 MG TABLET PO SCH ×2 (10:22→21:17)
[2019-11-29] MEDS: AMLODIPINE 10MG TABLET PO SCH (10:22)
[2019-11-29 20:00] VITALS: BP 140/60
[2019-11-29] MEDS: ATORVASTATIN CALCIUM 20MG TABLET PO SCH (21:17)
[2019-11-29] MEDS: LACTULOSE 20G/30ML UDC PO PRN (21:17)
[2019-11-30] MEDS: HYDRALAZINE HCL 10MG TABLET PO SCH ×3 (06:00→21:28)
[2019-11-30] MEDS: INSULIN LISPRO 100 UNITS/ML SUBCUT SCH ×4 (06:07→20:24)
[2019-11-30] MEDS: BLOOD SUGAR DIAGNOSTIC STRIP TEST SCH ×4 (06:07→20:19)
[2019-11-30 06:23] LABS: CHLORIDE 108 mEq/L (98-107)
[2019-11-30 06:30] LABS: BASOPHILS % 1.1 % (0.0-2.0); EOSINOPHILS % 2.3 % (0.0-5.0); HEMATOCRIT. 31.8 % (36.0-48.0); HEMOGLOBIN. 10.9 g/dL (12.0-16.0); LYMPHOCYTES % 36.4 % (20.0-50.0); MEAN CORPUSCULAR HEMOGLOBIN 29.3 pg (28.0-32.0); MEAN CORPUSCULAR VOLUME 85.3 fL (81.0-99.0); MONOCYTES % 11.7 % (2.0-8.0); NEUTROPHILS % 48.5 % (40.0-76.0); PLATELET 188 x1000/uL (130-400); RED BLOOD CELL COUNT 3.73 mill/uL (4.2-5.4); RED CELL DISTRIBUTION WIDTH 14.3 % (11.6-14.6)
[2019-11-30 08:00] VITALS: BP 144/71
[2019-11-30] MEDS: APIXABAN 5 MG TABLET PO SCH ×2 (08:46→17:17)
[2019-11-30] MEDS: LOSARTAN POTASSIUM 50 MG TABLET PO SCH ×2 (08:46→21:28)
[2019-11-30] MEDS: ASPIRIN 81MG EC TABLET PO SCH (08:46)
[2019-11-30] MEDS: FUROSEMIDE 20MG TABLET PO SCH (08:46)
[2019-11-30] MEDS: AMLODIPINE 10MG TABLET PO SCH (08:46)
[2019-11-30] MEDS: DOCUSATE SODIUM 100MG CAPSULE PO SCH ×2 (08:46→17:17)
[2019-11-30 20:00] VITALS: BP 144/76
[2019-11-30] MEDS: ATORVASTATIN CALCIUM 20MG TABLET PO SCH (21:28)
[2019-12-01] MEDS: HYDRALAZINE HCL 10MG TABLET PO SCH ×3 (06:18→21:23)
[2019-12-01] MEDS: BLOOD SUGAR DIAGNOSTIC STRIP TEST SCH ×4 (06:19→21:23)
[2019-12-01] MEDS: INSULIN LISPRO 100 UNITS/ML SUBCUT SCH ×4 (06:23→21:00)
[2019-12-01 07:55] VITALS: BP 143/73
[2019-12-01] MEDS: DOCUSATE SODIUM 100MG CAPSULE PO SCH ×2 (10:27→17:05)
[2019-12-01] MEDS: ASPIRIN 81MG EC TABLET PO SCH (10:27)
[2019-12-01] MEDS: LOSARTAN POTASSIUM 50 MG TABLET PO SCH ×2 (10:27→21:22)
[2019-12-01] MEDS: FUROSEMIDE 20MG TABLET PO SCH (10:28)
[2019-12-01] MEDS: AMLODIPINE 10MG TABLET PO SCH (10:28)
[2019-12-01] MEDS: APIXABAN 5 MG TABLET PO SCH ×2 (10:29→17:05)
[2019-12-01 20:00] VITALS: BP 155/68
[2019-12-01] MEDS: ATORVASTATIN CALCIUM 20MG TABLET PO SCH (21:22)
[2019-12-02] MEDS: HYDRALAZINE HCL 10MG TABLET PO SCH ×2 (05:36→14:21)
[2019-12-02] MEDS: BLOOD SUGAR DIAGNOSTIC STRIP TEST SCH ×2 (05:36→11:15)
[2019-12-02] MEDS: AMLODIPINE 10MG TABLET PO SCH (08:07)
[2019-12-02] MEDS: LOSARTAN POTASSIUM 50 MG TABLET PO SCH (08:07)
[2019-12-02] MEDS: FUROSEMIDE 20MG TABLET PO SCH (08:07)
[2019-12-02] MEDS: ASPIRIN 81MG EC TABLET PO SCH (08:07)
[2019-12-02] MEDS: DOCUSATE SODIUM 100MG CAPSULE PO SCH (08:07)
[2019-12-02 08:22] VITALS: BP 129/68
[2019-12-02] MEDS: INSULIN LISPRO 100 UNITS/ML SUBCUT SCH ×2 (09:00→11:34)
[2019-12-02 10:08] VITALS: BP 129/68
[2019-12-02] MEDS: APIXABAN 5 MG TABLET PO SCH (14:21)
== END 2019-12-02 16:35 | disposition home or self-care (01) | DRG 65 ==
PROVIDERS: ADMIT Psychiatry & Neurology Neurology; ATTEND Internal Medicine
DX: I63.81 Other cerebral infarction due to occlusion or stenosis of small artery (principal); G81.91 Hemiplegia, unspecified affecting right dominant side; I48.92 Unspecified atrial flutter; I49.5 Sick sinus syndrome; I44.1 Atrioventricular block, second degree; I48.0 Paroxysmal atrial fibrillation; E11.9 Type 2 diabetes mellitus without complications; E78.5 Hyperlipidemia, unspecified; I10 Essential (primary) hypertension; Z60.2 Problems related to living alone; I34.0 Nonrheumatic mitral (valve) insufficiency; K59.00 Constipation, unspecified; M19.90 Unspecified osteoarthritis, unspecified site; Z95.0 Presence of cardiac pacemaker; Z79.899 Other long term (current) drug therapy; Z79.82 Long term (current) use of aspirin
CPT/HCPCS: 36415; 71045; 80048; 82962; 83735; 85025; 92523; 92610; 93005; 97110; 97116; 97162; 97166; 97530; 97535; J1815

== ENCOUNTER 2023-04-06 14:20 | Emergency (ER) | payer MEDICARE ==
[~2023-04-06] VITALS: Ht 172.7 cm; Wt 68.0 kg
[~2023-04-06 14:20] MED LIST changes: -ISOS1TAB MT; +ISOS1TAB2 MT
[2023-04-06 14:35] VITALS: BP 106/67; PULSE 77; RESP 20; TEMP 98.5; O2SAT 100
== END 2023-04-06 15:50 | disposition left against medical advice (07) ==
LOC: ER 14:20
DX: M79.605 Pain in left leg (principal); Z53.21 Procedure and treatment not carried out due to patient leaving prior to being seen by health care provider
CPT/HCPCS: 99281

== ENCOUNTER 2023-04-28 18:33 | Emergency (ER) | payer MEDICARE ==
[~2023-04-28] VITALS: Ht 170.2 cm; Wt 91.0 kg
[2023-04-28 18:38] VITALS: BP 185/80; O2SAT 95
[2023-04-28 19:39] LABS: BASOPHILS % 0.6 % (0.0-2.0); EOSINOPHILS % 1.3 % (0.0-5.0); HEMATOCRIT. 32.8 % (36.0-48.0); HEMOGLOBIN. 10.7 g/dL (12.0-16.0); LYMPHOCYTES % 25.3 % (20.0-50.0); MEAN CORPUSCULAR HEMOGLOBIN 30.1 pg (28.0-32.0); MEAN CORPUSCULAR HGB CONC 32.4 g/dL (31.0-37.0); MEAN CORPUSCULAR VOLUME 92.9 fL (81.0-99.0); MEAN PLATELET VOLUME 7.5 fl (7.4-10.4); MONOCYTES % 10.4 % (2.0-8.0); NEUTROPHILS % 62.4 % (40.0-76.0); PLATELET 181 x1000/uL (130-400); RED BLOOD CELL COUNT 3.54 mill/uL (4.2-5.4); WHITE BLOOD COUNT 2.9 x1000/uL (4.5-11.0)
[2023-04-28 19:54] LABS: ALANINE AMINOTRANSFERASE 26 IU/L (10-49); ALBUMIN 3.6 g/dL (3.2-4.8); ASPARTATE AMINOTRANSFERASE 30 IU/L (<34); BILIRUBIN TOTAL 1.3 mg/dL (0.1-1.0); CALCIUM 9.1 mg/dL (8.7-10.4); CARBON DIOXIDE 31 mEq/L (21-32); CHLORIDE 109 mEq/L (98-107); CREATININE 0.9 mg/dL (0.6-1.0); GLUCOSE 189 mg/dL (70-105); POTASSIUM 3.3 mEq/L (3.5-5.1); PROTEIN TOTAL 6.7 g/dL (6.0-8.3); SODIUM 146 mEq/L (136-145); UREA NITROGEN BLOOD 26 mg/dL (9-23)
[2023-04-28] MEDS ORDERED: ACETAMINOPHEN 325MG TABLET PO ONE (20:45)
[2023-04-28] MEDS ORDERED: CEPHALEXIN 250MG CAPSULE PO ONE (20:45)
[2023-04-29] MEDS ORDERED: BO1 TP (00:40)
[2023-04-29] MEDS ORDERED: CEPH500C2 MT (00:40)
[2023-04-29] MEDS ORDERED: ACET-2708 MT (00:40)
[2023-04-29 01:03] VITALS: PULSE 88; RESP 20
[2023-04-29] MEDS ORDERED: CEPHALEXIN 250MG CAPSULE PO NR (01:15)
[2023-04-29] MEDS ORDERED: ACETAMINOPHEN 325MG TABLET PO NR (01:15)
[2023-04-29 01:19] VITALS: TEMP 98.4
== END 2023-04-29 01:19 | disposition home or self-care (01) ==
LOC: ER 18:33
DX: S80.811A Abrasion, right lower leg, initial encounter (principal); S09.90XA Unspecified injury of head, initial encounter; E11.9 Type 2 diabetes mellitus without complications; R60.9 Edema, unspecified; I10 Essential (primary) hypertension; Z86.73 Personal history of transient ischemic attack (TIA), and cerebral infarction without residual deficits; W18.39XA Other fall on same level, initial encounter; Y93.89 Activity, other specified; Y92.89 Other specified places as the place of occurrence of the external cause; Y99.8 Other external cause status; I99.8 Other disorder of circulatory system
CPT/HCPCS: 36415; 71045; 73522; 80053; 82962; 83880; 85025; 93970; 99284